=== PATIENT | male | born 1985 | race Caucasian/White ===

== ENCOUNTER 2016-12-01 10:35 | Emergency (ER) | payer OTHER ==
[~2016-12-01 10:35] MED LIST: ALBUTEROL MININEB NEB; CIPRO PO; GLUCOTROL PO; NICOTINE TRANSD21 MG EXT; NOVOLIN 70100 UNITS/ INJ; NOVOLOG100 U/ML SUBQ
== END 2016-12-01 11:02 | disposition home or self-care (01) ==
LOC: SED 10:35
DX: K08.89 Other specified disorders of teeth and supporting structures (principal); I10 Essential (primary) hypertension; H93.8X2 Other specified disorders of left ear; E11.9 Type 2 diabetes mellitus without complications; Z88.2 Allergy status to sulfonamides; F17.210 Nicotine dependence, cigarettes, uncomplicated
CPT/HCPCS: 99282